=== PATIENT | female | born 1935 | race Caucasian/White ===

== ENCOUNTER 2016-09-07 | Inpatient (IN) | payer MEDICARE ==
[~2016-09-07] MED LIST: ALEVE220 MG PO; ASAB PO; ATEN50 PO; AVAP150 PO; BUM2 PO; BUSPAR10 PO; BUSPAR15 M1 PO; BUSPAR5 PO; C1 PO; C2 PO; C25 PO; C5 PO; CLARIT10 PO; CORDARONE PO; COREG25 PO; COREG3 PO; COUMADIN3 MG PO; FERROUS SULF325 M1 PO; IRON325 MG PO; KDUR20 PO; KLOR-CON 1010 MEQ PO; KLOR-CON M2020 MEQ PO; L20 PO; L40 PO; LAN25 PO; NAP500 PO; NOLV10 PO; OCEAN NAS; OS500 PO; OS500+D PO; PACERONE200 MG PO; PRAVACHOL40 MG PO; PRILO PO; REFRESH OPH; REFRESH OPH SO0.3 ML OPH; REFRESH PO; T PO; TOPXL50 PO; ULTRAM50 PO; ZOFRAN ODT4 MG PO
--- NOTE | ~2016-09-07 | CN ---
Consultation Report [facility] [address] [place]. [address] NAME: JUAQUIN RIOS : 37 STATUS : ADM IN PAT#: [id number] AGE: 81 ADM/REG DATE : 09/07/16 MR#: [id number] REPORT SERV DATE: 09/07/16 DICTATED BY: ISREAL ROBINS DATE: 09/07/16 REPORT STATUS : Draft TRANSCRIBED BY: MODL DATE: 09/07/16 CONSULTATION DATE OF CONSULTATION: REASON FOR CONSULTATION: Acute kidney injury on chronic kidney disease with volume overload and atrial fibrillation with RVR. HISTORY OF PRESENT ILLNESS: This is a very pleasant 81-year-old female patient, baseline creatinine appears to be around 1.4 to 1.9. She was recently hospitalized at [facility] for primarily the same complaint as current with increasing dyspnea and shortness of breath. She returns to [facility] overnight with increased dyspnea and shortness of breath and was noted to be in atrial fibrillation with rapid ventricular response and also volume overload with a BNP (B-natriuretic peptide) greater than 5000. She was hospitalized in favor of supportive care, rate control, and further hospital workup. The patient lives at home by herself, does receive some level of assistance and care from her children, and also receives home health care two to three days per week. She reports that over the last 48 hours to 72 hours, her dyspnea has worsened, prompting a return here to [facility]. She was discharged and placed in inpatient rehab at a long term facility earlier in the month of August and had recently returned home to living situation as listed above. Her heart rate is controlled as far as she continues on a Cardizem drip, which is at 5 mL an hour. She is awake, alert, and oriented. Denies current chest pain. No nausea, vomiting, or diarrhea. PAST MEDICAL HISTORY: Positive for chronic kidney disease, baseline creatinine around 1.4 to 1.7 with previous acute kidney injuries; recurrent hospitalizations for volume overload and shortness of breath; history of chronic atrial fibrillation with chronic warfarin use; history of systolic congestive heart failure with last known ejection fraction on 08/13/2016 noted at 20% with mild mitral regurgitation, biatrial enlargement, elevated right atrial pressure and global hypocontractility, RVSP is at 22 mmHg. History is also positive for hypertension and breast cancer, status post radiation therapy and tamoxifen therapy. SOCIAL HISTORY: No ETOH. No illicit drugs. No tobacco. FAMILY HISTORY: Noncontributory. Not reviewed during this consultation and dictation. ALLERGIES: SHE LISTS ALLERGIES TO PENICILLIN. ACTIVE MEDICATIONS: Include Cordarone 200 mg p.o. daily, artificial tears 0.3 OPH daily, Bumex 2 mg p.o. daily, BuSpar 10 mg p.o. daily, calcium 500 mg p.o. daily, Coreg 3.125 mg daily, Lovenox 80 mg subcu daily, ferrous sulfate 325 mg p.o. daily, Claritin 10 mg p.o. daily, ProAmatine 5 mg p.o. t.i.d., Prilosec 20 mg p.o. daily, Zofran 4 mg daily p.r.n. q.6 hours, oyster shell calcium 500 mg p.o. daily, Klor-Con 20 mEq daily, Pravachol 40 mg daily, Aldactone 25 mg daily, torsemide 20 mg daily, Ultram 50 mg p.o. t.i.d. p.r.n., Coumadin 2 mg Consultation Report [place] [id number] [facility] [place]. [address] NAME: JUAQUIN RIOS : 37 STATUS : ADM IN [facility]#: [id number] AGE: 81 ADM/REG DATE : 09/07/16 MR#: [id number] REPORT SERV DATE: 09/07/16 DICTATED BY: ISREAL ROBINS DATE: 09/07/16 REPORT STATUS : Draft TRANSCRIBED BY: MODL DATE: 09/07/16 daily and 3 mg half tab daily. REVIEW OF SYSTEMS: Completed, please see HPI for pertinent details. PHYSICAL EXAMINATION: VITAL SIGNS: Blood pressure 108/61, temperature 97.4, respiratory rate at 20, 97% on 2 L, heart rate is 89 beats per minute and irregular. GENERAL: She is awake, alert and oriented x3, in no acute distress during evaluation. HEENT: Normocephalic and atraumatic. Normal ocular movements. No scleral icterus or conjunctival pallor is appreciated. NECK: Supple without thyromegaly. No JVD. No mass. CHEST: Shows positive S1 and S2. No rubs or gallops. LUNGS: Diminished with scattered rhonchi and wheezes. GI: Shows positive bowel sounds in all four quadrants. No appreciable mass or tenderness. : Deferred. EXTREMITIES: Show positive pulses in all four extremities. She does have noticeable 1 to 2+ edema bilaterally, primarily in her feet. NEUROLOGIC: She appears to be grossly intact and nonfocal. SKIN: Warm, dry, and intact to visualized surfaces. No rash, lesions, or ecchymoses. DATA: Pertinent laboratories and imaging to this evaluation: 1. Laboratories: WBC 5.5, RBC 4.50, hemoglobin 13.0, hematocrit 39.4, platelets of 144. Most recent electrolyte profile: Sodium 133, potassium 3.7, chloride 94, BUN 48, creatinine 2.33, reflected GFR at 19 mL/minute, glucose of 105, calcium 9.3, magnesium 2.1, phosphorus 3.3. TSH 1.78. 2. Portable chest x-ray, bilateral effusions and bibasilar atelectasis increasing compared to previous study. 3. INR most recently at 2.6. IMPRESSION AND PLAN: This is a pleasant 81-year-old female patient with acute kidney injury on chronic kidney disease, volume overload, atrial fibrillation with rapid ventricular response, increasing dyspnea on exertion and shortness of breath with recent admission as listed above, on triple diuretic therapy at home in the form of Bumex, Aldactone, and torsemide. Would restrict fluids to 1200 mL of fluid daily, restrict her to 2 g sodium, check postvoid residual. Acute kidney injury is likely secondary to acute tubular necrosis injury with active atrial fibrillation with rapid ventricular response. Her rate is controlled, and her blood pressure has stabilized. She is chronically on midodrine therapy to provide blood pressure assistance. Would, while she is inpatient, maximize her diuretic therapy and minimize her multiple diuretics if possible. Would maximize her Aldactone and remove her potassium supplement if possible as Aldactone is a potassium-sparing diuretic. Would consider Cardiology consultation, we will defer that to primary care team. Wean Cardizem drip as her rate is now controlled. Would also consider inpatient long term facility placement as this appears to be a recurrent admission, maybe exhibiting a level of inability to provide self home care. Further modification of Consultation Report [facility] [address] [place]. [address] NAME: JUAQUIN RIOS : 37 STATUS : ADM IN [facility]#: [id number] AGE: 81 ADM/REG DATE : 09/07/16 MR#: [id number] REPORT SERV DATE: 09/07/16 DICTATED BY: ISREAL ROBINS DATE: 09/07/16 REPORT STATUS : Draft TRANSCRIBED BY: JAYMIE DATE: 09/07/16 treatment plan may be made based on the clinical presentation of the patient, laboratory results, and further consultation with Renal attending. We appreciate consultation and are glad to follow with you. DICTATED BY: Samm Rogers NP JR/JAYMIE Isreal Robins M.D. / [id number] CC: MD Zay Gama M.D.
--- NOTE | ~2016-09-07 | DS ---
Discharge Summary [facility] [address] [place]. [address] NAME: JUAQUIN RIOS : 37 STATUS : ADM IN PAT#: [id number] AGE: 81 ADM/REG DATE : 09/07/16 MR#: [id number] REPORT SERV DATE: 09/18/16 DICTATED BY: Ketan EUGENE DATE: 09/18/16 REPORT STATUS : Draft TRANSCRIBED BY: MODL DATE: 09/18/16 ADMISSION DATE: 09/07/2016 DISCHARGE DATE: DIAGNOSES AT DISCHARGE: 1. Atrial fibrillation with rapid ventricular response. 2. Acute on chronic systolic heart failure. 3. Nonischemic cardiomyopathy, ejection fraction 20%. 4. Acute kidney injury, superimposed on chronic kidney disease. 5. Cardiogenic shock, resolved at discharge. 6. Hyponatremia, improved. 7. Hypokalemia, improved. ACTIVE CONSULTATIONS: Cardiology, Electrophysiology, Nephrology, Critical Care Medicine. PROCEDURES: AV node ablation and placement of a biventricular permanent pacemaker. BRIEF HOSPITAL COURSE: An 81-year-old female patient with known nonischemic cardiomyopathy with severely depressed left ventricular function, ejection fraction 20%, was admitted with rapid ventricular response of her AFib and a resultant decompensation of her chronic heart failure. The patient also was found to have acute kidney injury, superimposed on her chronic kidney disease, seen by multiple specialists including Cardiology and Nephrology. The patient ultimately did not respond to maximum medical therapy. Electrophysiology was consulted and the decision was made after discussing with the patient and family, they would pursue the placement of a biventricular pacer and do an AV node ablation. This procedure was done on September 15, 2016. Following the procedure, the patient had a marked improvement in her clinical status, improvement in her hemodynamic status, and stabilization of her renal function. Postoperatively, the patient was transitioned from the intermediate care unit to [address] [place] [address] cardiac telemetry. She continued to do quite well, but because of her advanced age and weakened state and multiple comorbidities, decision was made to seek rehabilitation at the [facility] level. The patient was deemed stable by Nephrology, Cardiology, and the Hospitalist Service to transition to [facility] on September 18, 2016, for ongoing care. DISCHARGE MEDICATIONS: Will be as follows: Artificial Tears p.r.n., amiodarone 200 daily, BuSpar 10 at bedtime and 5 in the morning, Coreg 3.125 b.i.d., Os-Luther 500 daily, Claritin 10 daily, Prilosec 20 daily, Pravachol 40 at bedtime, Demodex 20 daily, Coumadin 2 mg daily, Lortab 5 one to two q.4 hours p.r.n. We will ask the patient to have a PT and INR done Wednesday, Wednesday, Wednesday at the facility. She will continue with ongoing physical and occupational therapy to improve her functional status. She will follow up with her primary care in a few weeks and follow up with Dr. Short at the [facility] in approximately 5 weeks. Of note, greater than 30 minutes was required to review medical record, to reconcile discharge medications, complete discharge paperwork, and prescriptions. Discharge Summary [address] [address] NAME: JUAQUIN RIOS : 37 STATUS : ADM IN PAT#: [id number] AGE: 81 ADM/REG DATE : 09/07/16 MR#: [id number] REPORT SERV DATE: 09/18/16 DICTATED BY: Ketan EUGENE DATE: 09/18/16 REPORT STATUS : Draft TRANSCRIBED BY: JAYMIE DATE: 09/18/16 [facility]/JAYMIE Ketan Eugene M.D. / [id number]
--- NOTE | ~2016-09-07 | PRECARD ---
H&P [facility] [address] [place]. [address] NAME: FRANCINE TINEO : 37 STATUS : ADM IN [facility]#: [id number] AGE: 81 ADM/REG DATE : 09/07/16 MR#: [id number] REPORT SERV DATE: 09/08/16 DICTATED BY: SKYLA LANDRUM DATE: 09/08/16 REPORT STATUS : Draft TRANSCRIBED BY: JAYMIE DATE: 09/08/16 DATE OF ADMISSION: 09/07/2016 Ms. Francine Tineo is an 81-year-old woman with a known dilated cardiomyopathy, with ejection fraction about 20%, admitted with heart failure symptoms, chronic kidney disease, acute renal insufficiency with atrial fibrillation, about 120. She does have a long history of known history of chronic systolic heart failure. Her ejection fraction had been about 30% in the past. Echocardiogram on August 12 demonstrated ejection fraction of 20%. She had persistent atrial fibrillation. She had hypotension this admission. She had not been able to receive carvedilol, and is in fact on midodrine. She has mild orthopnea and PND. She has been on warfarin and amiodarone oral, 200 mg daily. She denies stroke or stroke-like symptoms. She denies history of stroke. She has had no bleeding. PAST MEDICAL HISTORY: Atrial fibrillation, hypertension, chronic kidney disease, and breast cancer. No tobacco or alcohol. FAMILY HISTORY: Noncontributory. MEDICATIONS: Amiodarone 200 mg daily; buspirone; iron; loratadine; Protonix; pravastatin; spironolactone; torsemide; warfarin; and midodrine 5 mg t.i.d. REVIEW OF SYSTEMS: A complete review of systems obtained, pertinent negative and unremarkable except as noted above and below. All systems addressed. PHYSICAL EXAMINATION: VITAL SIGNS: Systolic pressures have been about 90, pressure currently about 106/72, heart rate 120. GENERAL: She appears chronically ill, comfortable, flat. HEENT: No xanthelasma; lips without cyanosis LUNGS: Clear to auscultation. No wheezes. Good breath sounds. occasional wheezes and rhonchi. CARDIOVASCULAR: A 2/6 murmur at the apex, holosystolic. No JVD or hepatojugular reflux, no murmurs, rubs or gallops, impulse mid clavicular line without carotid or abdominal bruits; normal S1 and S2. ABDOMEN: Bowel sounds positive, normal activity, without tenderness, masses or hepatosplenomegaly. EXTREMITIES: No cyanosis. Extremities have moderate bilateral leg edema. SKIN: Normal turgor. MUSCULOSKELETAL: Normal muscle strength, without kyphosis/scoliosis. H&P [address] [address] NAME: FRANCINE TINEO : 37 STATUS : ADM IN PAT#: [id number] AGE: 81 ADM/REG DATE : 09/07/16 MR#: [id number] REPORT SERV DATE: 09/08/16 DICTATED BY: SKYLA LANDRUM DATE: 09/08/16 REPORT STATUS : Draft TRANSCRIBED BY: JAYMIE DATE: 09/08/16 NEUROLOGIC/PSYCHIATRIC: Alert and oriented times 4, no apparent anxiety or depression. LAB DATA: BUN is 48, creatinine 2.19, hematocrit 40%. INR is 2.9. ASSESSMENT: Ms. Tineo is a very nice 81-year-old lady with dilated cardiomyopathy, ejection fraction of about 20%. She had hypotension. She has been on midodrine. I am reluctant to use digoxin because of her renal insufficiency, I would not use beta marck because of hypotension requiring midodrine, or diltiazem for the same reason. Heart rate has been about 120. I will add amiodarone IV which will hopefully improve her heart rate control. She has been on warfarin with a therapeutic INR. SANCHEZ/JAYMIE Skyla Landrum M.D. / [id number] CC: MD Zay Elizondo M.D.
--- NOTE | ~2016-09-07 | CN ---
Consultation Report [facility] [address] [place]. [address] NAME: JUAQUIN TINEO : 37 STATUS : ADM IN PAT#: [id number] AGE: 81 ADM/REG DATE : 09/07/16 MR#: [id number] REPORT SERV DATE: 09/11/16 DICTATED BY: OPAL HAWKINS DATE: 09/11/16 REPORT STATUS : Draft TRANSCRIBED BY: MODL DATE: 09/11/16 CONSULTATION DATE OF CONSULTATION: 09/11/2016 HISTORY OF PRESENT ILLNESS: Ms. Tineo is an 81-year-old woman, senior living resident, who has a longstanding history of cardiomyopathy, ejection fraction has progressively declined from 40% to 20%. She has chronic atrial fibrillation with attempt at cardioversion earlier this year, but unable to convert at that point. She has chronic renal insufficiency as well with a baseline creatinine over 2.0. She was at the senior living noting increasing shortness of breath and was admitted with this as well as atrial fibrillation with rapid ventricular response. There was some evidence of congestive heart failure with pulmonary vascular congestion on her chest x-ray. She has underlying hypotension, which has made it difficult to use beta-marck or calcium channel marck for her rate control. She previously had issues with digoxin toxicity, likely secondary to her chronic renal insufficiency. We have been asked for any other treatment options that might be available. PAST MEDICAL HISTORY: Notable for: 1. Atrial fibrillation, which is chronic. 2. Nonischemic dilated cardiomyopathy, ejection fraction currently at 20%. 3. Hypertension. 4. Chronic kidney disease. 5. History of breast cancer, status post radiation and lumpectomy in the left breast. HOME MEDICATIONS: Include amiodarone, pravastatin, spironolactone, torsemide, warfarin and she had been taking midodrine due to her hypotension, but is not taking this currently. FAMILY HISTORY: Negative for premature coronary artery disease or sudden cardiac . SOCIAL HISTORY: Negative tobacco or alcohol. REVIEW OF SYSTEMS: Notable for weakness, fatigue, lightheadedness, shortness of breath, and palpitations. PHYSICAL EXAMINATION: VITAL SIGNS: Her blood pressure is 98/60; her pulse is 130, in atrial fibrillation; her respirations are 18. GENERAL: Well developed, well nourished. She is quite fatigued. HEENT: No icterus. Good dentition. NECK: Supple. No masses or thyromegaly. LUNGS: Breathing comfortably. Rales at the bases bilaterally. CARDIAC: Rapid irregular rhythm with normal S1 and S2. ABD: Soft, nondistended, nontender. No hepatosplenomegaly. EXT: No clubbing, cyanosis, or edema. Peripheral pulses 2+/= bilaterally. Consultation Report [facility] [address] [place]. [address] NAME: JUAQUIN TINEO : 37 STATUS : ADM IN PAT#: [id number] AGE: 81 ADM/REG DATE : 09/07/16 MR#: [id number] REPORT SERV DATE: 09/11/16 DICTATED BY: OPAL HAWKINS DATE: 09/11/16 REPORT STATUS : Draft TRANSCRIBED BY: JAYMIE DATE: 09/11/16 SKIN: Warm and dry. No visible lesions. MS: Chest wall without deformity. No obvious clavicular fractures. NEURO/PSYCH: Oriented x3. No anxiety or depression. DIAGNOSTIC DATA: EKG demonstrates atrial fibrillation, IVCD, rapid ventricular response. The IVCD has a left bundle-branch block pattern type to it. LABORATORY VALUES: Creatinine of peak to 2.2, currently at 2.02; sodium 132; potassium 3.8. White count of 10.0, hematocrit of 43. INR of 128. Troponin negative. BNP greater than 5000. IMPRESSION: I believe the patient has class IV congestive heart failure that is acute on chronic. The increased ventricular response is related to her acute on chronic heart failure and difficulty of breathing. Her renal insufficiency makes her congestive heart failure symptoms worse and likely, there is an element of cardiorenal syndrome. She has had a progression in her LV dysfunction over the course of the year, and I do not believe that this is related to a tachycardia-related cardiomyopathy as the rate has been reasonably controlled until recently. We could try another attempt at cardioversion and would recommend this beginning of next week. We will plan to load amiodarone in the meantime. Another option could be AV node ablation and placement of a biventricular pacemaker or biventricular defibrillator. There potentially may be some benefit to this as the patient has had an underlying IVCD of a left bundle-branch block type and if we perform AV node ablation, she certainly would have an acquired left bundle-branch block pattern. There is some potential benefit to biventricular pacing in class IV congestive heart failure. It should be noted, however, that given the progressive nature of her heart failure along with her advanced age, whether the patient and her family will want to go on with these types of treatments that may or may not be helpful at improving her mortality or quality of life. This will need to be further discussed over the weekend. PRIYANK/JAYMIE Opal Hawkins M.D. / [id number] CC: Delfino Peres M.D.
--- NOTE | ~2016-09-07 | HP ---
History And Physical [facility] [address] [place]. [address] NAME: JUAQUIN TINEO : 37 STATUS : ADM IN [facility]#: [id number] AGE: 81 ADM/REG DATE : 09/07/16 MR#: [id number] REPORT SERV DATE: 09/07/16 DICTATED BY: DYLON ELIZABETH DATE: 09/07/16 REPORT STATUS : Draft TRANSCRIBED BY: MODL DATE: 09/07/16 DATE OF ADMISSION: 09/07/2016 CHIEF COMPLAINT: Atrial fibrillation with rapid ventricular response, swelling in both her extremities, and difficulty breathing. HISTORY OF PRESENT ILLNESS: This is an 81-year-old female, a resident at [facility], with a history of atrial fibrillation, chronic systolic congestive heart failure, hypertension, and chronic kidney disease. Is brought to the emergency room today at [facility], with the above-mentioned complaint. History is obtained from the patient and reviewing data available on [employer] system. According to the patient, she had been in her usual state of health until a couple of days ago when she started having increasing swelling in both her lower extremities and subsequently, she started having difficulty breathing. She says initially it was with exertion and now it is even at rest. She gets extremely short of breath even with minimal exertion. She was also found to have atrial fibrillation with rapid ventricular response. The patient was brought to the emergency room to be evaluated. In the emergency room, initial workup revealed that she had acute on chronic kidney disease. She had atrial fibrillation with a rapid ventricular response, volume overload with an elevated BNP, and chest x-ray showing worsening bilateral pleural effusions. Hospitalist Service is asked to admit her for further evaluation and treatment. At the time of my evaluation, she denied any chest pain, palpitations, or orthopnea. She was in no acute distress. She denied any cough recently, denied any sputum production, hemoptysis, night sweats, or weight loss. She has not had any recent falls or loss of consciousness. No history of recent fevers, chills, nausea, vomiting, or diarrhea. She denied any bleeding anywhere. No other history of recent travel or exposures other than those mentioned above. PAST MEDICAL HISTORY: Significant for history of chronic atrial fibrillation, on warfarin; history of chronic systolic congestive heart failure with last known ejection fraction of 45%. She has history of hypertension; chronic kidney disease; and also breast cancer, status post surgery and radiation therapy and tamoxifen therapy. SOCIAL HISTORY: She has never smoked. Does not drink or use recreational drugs. FAMILY HISTORY: Noncontributory. MEDICATIONS: Were reviewed by me in the chart today and reordered by me. REVIEW OF SYSTEMS: As in history of present illness. All other systems were reviewed in detail and are quite unremarkable. History And Physical [address] [address] NAME: JUAQUIN TINEO : 37 STATUS : ADM IN PAT#: [id number] AGE: 81 ADM/REG DATE : 09/07/16 MR#: [id number] REPORT SERV DATE: 09/07/16 DICTATED BY: DYLON ELIZABETH DATE: 09/07/16 REPORT STATUS : Draft TRANSCRIBED BY: JAYMIE DATE: 09/07/16 PHYSICAL EXAMINATION: GENERAL: This is a pleasant 81-year-old, not in any acute distress. HEENT: Her head is atraumatic, normocephalic. She is alert, awake, oriented to time, place, and person. Pupils are equal, reacting to light and accommodating. External ocular muscles are intact. Membranes are moist and pink. Sclerae are nonicteric. NECK: Supple with no jugular venous distention, lymphadenopathy, or thyromegaly. LUNGS: Clear to auscultation with no wheezes, rubs, or crackles. HEART: Heart sounds were regular with no murmurs, rubs, or gallops. ABDOMEN: Soft and nontender. Bowel sounds are present. EXTREMITIES: Showed bilateral pitting lower extremity edema with no cyanosis or clubbing. NEUROLOGIC: Grossly intact with no focal sensory or motor deficits. Higher functions appeared intact. VITAL SIGNS: Her temperature was 97.5, pulse 140, respirations 22, blood pressure was 103/79, oxygen saturations were 96% breathing 2 L via nasal cannula. LABORATORY DATA: Reviewed on the [employer] system showed a sodium of 134, potassium 3.8, chloride 97, CO2 of 22. BUN was 49 with a creatinine of 2.42, which is up from her baseline. Glucose was 137. Her albumin was 3.1 today. ALT and AST were within normal limits. Troponin was 0.02. Her BNP was 5,000. CBC showed a white blood cell count of 4200, normal hemoglobin and hematocrit, and platelet count was 170,000. Urinalysis was not performed today. Films of the chest x-ray were reviewed by me on the PACS today and interpreted by me. There are worsening bilateral pleural effusions when compared to x-ray done on 08/15/2016. There is cardiomegaly. A 12-lead EKG done in the emergency room was reviewed and interpreted by me. There is atrial fibrillation with rapid ventricular response of 142. IMPRESSION: 1. Atrial fibrillation with rapid ventricular response. 2. Volume overload. 3. Acute on chronic systolic congestive heart failure. 4. Hypertension. 5. Acute on chronic kidney disease. PLAN: We will admit Ms. Tineo to the Hospitalist Service with telemetry for a 24-hour observation period. We will start her on Cardizem infusion per protocol for rate control cautiously due to her blood pressure. For her acute on chronic kidney disease with volume overload, we will hold diuretics for now because of her borderline blood pressure and go ahead and consult Nephrology. For now, we will use albumin infusion and then see if we can use IV diuretics if possible and also rate control. We will continue all other medications and treatments at this time. Check PT/INR in the morning and re-dose warfarin as needed. I have discussed the above plans with the patient, her questions were answered, and she is agreeable to the above recommendations. Please see today's orders for details. Hospitalist Service will be following her during her stay. History And Physical [address] [address] NAME: JUAQUIN TINEO : 37 STATUS : ADM IN [facility]#: [id number] AGE: 81 ADM/REG DATE : 09/07/16 MR#: [id number] REPORT SERV DATE: 09/07/16 DICTATED BY: DYLON ELIZABETH DATE: 09/07/16 REPORT STATUS : Draft TRANSCRIBED BY: JAYMIE DATE: 09/07/16 /JAYMIE Dylon Elizabeth M.D. / [id number] CC: MD Zay Gama M.D.
[2016-09-07 00:38] LABS: BASOPHILS 0.2 %; BASOPHILS ABSOLUTE 0.01 10/3/uL (0.0-0.16); EOSINOPHILS 0.7 %; EOSINOPHILS ABSOLUTE 0.03 10/3/uL (0.0-0.53); ER CBC TAT 0 Hrs 09 Mins; HEMOGLOBIN 15.2 g/dL (12.0-16.0); IMMATURE GRANULOCYTES 0.2 %; IMMATURE GRANULOCYTES ABSOLUTE 0.01 10/3/uL (0.0-0.11); LYMPHOCYTES 28.5 %; LYMPHOCYTES ABSOLUTE 1.19 10/3/uL (0.67-4.30); MANUAL DIFF NO %; MEAN CORPUS HGB CONC 33.8 g/dL (32.0-36.0); MEAN CORPUSCULAR HEMOGLOB 29.4 pg (26.0-34.0); MEAN PLATELET VOLUME 13.3 fL (9.2-13.0); MONOCYTES 6.7 %; MONOCYTES ABSOLUTE 0.28 10/3/uL (0.21-1.20); NEUTROPHILS 63.7 %; NEUTROPHILS ABSOLUTE 2.65 10/3/uL (2.02-8.40); NUCLEATED RED BLOOD CELLS 0.7 /100WBC (0-0); PLATELET COUNT 170 10/3/uL (150-400); RBC DISTRIBUTION WIDTH 17.3 % (12.0-16.0); RED CELL COUNT 5.17 10/6/uL (4.0-5.6); WHITE BLOOD CELLS 4.2 10/3/uL (4.5-10.5)
[2016-09-07 00:47] LABS: INTERNATIONAL NORMAL RATI 2.6 UNITS (-); PARTIAL THROMBO TIME 40.5 SEC (22.5-37.2); PROTIME (NOT ORD) 27.4 SEC (12.0-14.5)
[2016-09-07 00:51] LABS: CALCIUM, SERUM 9.2 MG/DL (8.5-10.4); CHEST PAIN PROFILE TAT 0 Hrs 22 Mins; CHLORIDE, SERUM 97 MMOL/L (96-112); DIRECT BILIRUBIN 0.8 MG/DL (0.0-0.4); POTASSIUM, SERUM 3.8 MMOL/L (3.5-5.3); SGOT(AST) 23 U/L (5-40); SGPT(ALT) 29 U/L (5-65); SODIUM, SERUM 134 MMOL/L (135-148); TOTAL PROTEIN 6.7 G/DL (6.0-8.5); TROPONIN I 0.02 NG/ML (<0.05)
[2016-09-07 00:54] LABS: ALBUMIN 3.1 G/DL (3.5-5.0); ALKALINE PHOSPHATASE 63 U/L (45-117); BUN (BLOOD UREA NITROGEN) 49 MG/DL (6-23); CO2 (CARBON DIOXIDE) 22 MMOL/L (24-34); CREATININE 2.42 MG/DL (0.55-1.02); GFR AFRICAN AMERICAN 21 ML/MIN (>=60); GFR NON AFRICAN AMERICAN 18 ML/MIN (>=60); GLUCOSE, SERUM 137 MG/DL (60-99); INDIRECT BILIRUBIN(NOT ORDER) 0.6 MG/DL (0.1-0.9); TOTAL BILIRUBIN 1.4 MG/DL (0-1.2)
[2016-09-07 01:00] LABS: PLATELET ESTIMATE ADQ (ADEQUATE); RBC MORPHOLOGY NORM (NORMAL)
[2016-09-07] MEDS ORDERED: SPIRO25 PO (01:23)
[2016-09-07] MEDS ORDERED: DEMA20 PO (01:23)
[2016-09-07] MEDS ORDERED: LOVENOX80 SC ×2 (01:25→15:11)
[2016-09-07] MEDS ORDERED: PROAMAT5 PO (01:26)
[2016-09-07] MEDS ORDERED: OYST-CAL500 MG PO (01:26)
[2016-09-07] MEDS ORDERED: COUMADIN3 MG PO (01:28)
[2016-09-07 08:59] LABS: BASOPHILS 0 %; EOSINOPHILS 0 %; HEMATOCRIT 39.4 % (36.0-48.0); IMMATURE GRANULOCYTES 0.4 %; IMMATURE GRANULOCYTES ABSOLUTE 0.02 10/3/uL (0.0-0.11); MEAN CORPUSCULAR HEMOGLOB 28.9 pg (26.0-34.0); MEAN CORPUSCULAR VOLUME 87.6 fL (80-100); MONOCYTES 6.2 %; MONOCYTES ABSOLUTE 0.34 10/3/uL (0.21-1.20); NEUTROPHILS 82.4 %; PLATELET COUNT 144 10/3/uL (150-400); RBC DISTRIBUTION WIDTH 17.2 % (12.0-16.0); WHITE BLOOD CELLS 5.5 10/3/uL (4.5-10.5)
[2016-09-07 09:00] LABS: MANUAL DIFF NO %
[2016-09-07 09:04] LABS: INTERNATIONAL NORMAL RATI 2.6 UNITS (-); PROTIME (NOT ORD) 27.8 SEC (12.0-14.5)
[2016-09-07 09:40] LABS: BUN (BLOOD UREA NITROGEN) 48 MG/DL (6-23); CALCIUM, SERUM 9.3 MG/DL (8.5-10.4); CHLORIDE, SERUM 94 MMOL/L (96-112); CREATININE 2.33 MG/DL (0.55-1.02); GFR AFRICAN AMERICAN 22 ML/MIN (>=60); GFR NON AFRICAN AMERICAN 19 ML/MIN (>=60); PHOSPHORUS, SERUM 3.3 MG/DL (2.5-4.5); POTASSIUM, SERUM 3.7 MMOL/L (3.5-5.3); SODIUM, SERUM 133 MMOL/L (135-148)
[2016-09-07 09:41] LABS: CO2 (CARBON DIOXIDE) 28 MMOL/L (24-34); GLUCOSE, SERUM 105 MG/DL (60-99)
[2016-09-07 10:01] LABS: ANISOCYTOSIS 1+ (5-10/OIF) (0-5/OIF); GIANT PLATELET RARE; PLATELET ESTIMATE SLT DEC (ADEQUATE)
[2016-09-08 05:28] LABS: BASOPHILS 0 %; EOSINOPHILS 0.7 %; EOSINOPHILS ABSOLUTE 0.04 10/3/uL (0.0-0.53); HEMATOCRIT 40.4 % (36.0-48.0); HEMOGLOBIN 13.6 g/dL (12.0-16.0); IMMATURE GRANULOCYTES 0.2 %; IMMATURE GRANULOCYTES ABSOLUTE 0.01 10/3/uL (0.0-0.11); INTERNATIONAL NORMAL RATI 2.9 UNITS (-); LYMPHOCYTES 18.6 %; LYMPHOCYTES ABSOLUTE 1.06 10/3/uL (0.67-4.30); MEAN CORPUS HGB CONC 33.7 g/dL (32.0-36.0); MEAN CORPUSCULAR HEMOGLOB 29.1 pg (26.0-34.0); MEAN CORPUSCULAR VOLUME 86.5 fL (80-100); MEAN PLATELET VOLUME 13.2 fL (9.2-13.0); MONOCYTES 7.4 %; MONOCYTES ABSOLUTE 0.42 10/3/uL (0.21-1.20); NEUTROPHILS 73.1 %; NEUTROPHILS ABSOLUTE 4.17 10/3/uL (2.02-8.40); PLATELET COUNT 150 10/3/uL (150-400); PROTIME (NOT ORD) 29.7 SEC (12.0-14.5); RBC DISTRIBUTION WIDTH 17.3 % (12.0-16.0); RED CELL COUNT 4.67 10/6/uL (4.0-5.6); WHITE BLOOD CELLS 5.7 10/3/uL (4.5-10.5)
[2016-09-08 05:30] LABS: MANUAL DIFF NO %
[2016-09-08 05:38] LABS: ALBUMIN 3.4 G/DL (3.5-5.0); BUN (BLOOD UREA NITROGEN) 48 MG/DL (6-23); CHLORIDE, SERUM 95 MMOL/L (96-112); CO2 (CARBON DIOXIDE) 28 MMOL/L (24-34); CREATININE 2.19 MG/DL (0.55-1.02); GFR AFRICAN AMERICAN 24 ML/MIN (>=60); GFR NON AFRICAN AMERICAN 21 ML/MIN (>=60); GLUCOSE, SERUM 94 MG/DL (60-99); PHOSPHORUS, SERUM 2.9 MG/DL (2.5-4.5); POTASSIUM, SERUM 3.6 MMOL/L (3.5-5.3); SODIUM, SERUM 136 MMOL/L (135-148)
[2016-09-08 05:45] LABS: ANISOCYTOSIS 1+ (5-10/OIF) (0-5/OIF); PLATELET ESTIMATE ADQ (ADEQUATE)
[2016-09-08 14:15] LABS: UR PROTEIN/CREAT RATIO 0.25 (< 0.2)
[2016-09-09 06:37] LABS: PROTIME (NOT ORD) 30.6 SEC (12.0-14.5)
[2016-09-09 06:44] LABS: BASOPHILS 0.2 %; BASOPHILS ABSOLUTE 0.01 10/3/uL (0.0-0.16); EOSINOPHILS 0.8 %; EOSINOPHILS ABSOLUTE 0.05 10/3/uL (0.0-0.53); HEMOGLOBIN 14.7 g/dL (12.0-16.0); IMMATURE GRANULOCYTES 0.5 %; IMMATURE GRANULOCYTES ABSOLUTE 0.03 10/3/uL (0.0-0.11); LYMPHOCYTES 19.2 %; LYMPHOCYTES ABSOLUTE 1.16 10/3/uL (0.67-4.30); MANUAL DIFF NO %; MEAN CORPUS HGB CONC 33.4 g/dL (32.0-36.0); MEAN CORPUSCULAR HEMOGLOB 29.1 pg (26.0-34.0); MEAN PLATELET VOLUME 13.6 fL (9.2-13.0); MONOCYTES 7.6 %; MONOCYTES ABSOLUTE 0.46 10/3/uL (0.21-1.20); NEUTROPHILS 71.7 %; NEUTROPHILS ABSOLUTE 4.34 10/3/uL (2.02-8.40); PLATELET COUNT 148 10/3/uL (150-400); RBC DISTRIBUTION WIDTH 17.4 % (12.0-16.0); RED CELL COUNT 5.06 10/6/uL (4.0-5.6); WHITE BLOOD CELLS 6.1 10/3/uL (4.5-10.5)
[2016-09-09 06:49] LABS: A/G RATIO 1.2 (0.7-1.9); ALBUMIN 3.6 G/DL (3.5-5.0); ALKALINE PHOSPHATASE 56 U/L (45-117); BUN (BLOOD UREA NITROGEN) 48 MG/DL (6-23); CALCIUM, SERUM 9.5 MG/DL (8.5-10.4); CHLORIDE, SERUM 92 MMOL/L (96-112); CO2 (CARBON DIOXIDE) 28 MMOL/L (24-34); CREATININE 2.24 MG/DL (0.55-1.02); GFR AFRICAN AMERICAN 23 ML/MIN (>=60); GFR NON AFRICAN AMERICAN 20 ML/MIN (>=60); GLOBULIN 3.1 G/DL (2.5-4.1); GLUCOSE, SERUM 110 MG/DL (60-99); SGOT(AST) 28 U/L (5-40); SGPT(ALT) 23 U/L (5-65); SODIUM, SERUM 133 MMOL/L (135-148); TOTAL PROTEIN 6.7 G/DL (6.0-8.5)
[2016-09-09 06:54] LABS: POTASSIUM, SERUM 4.5 MMOL/L (3.5-5.3); TOTAL BILIRUBIN 2.2 MG/DL (0-1.2)
[2016-09-09 07:09] LABS: ANISOCYTOSIS 1+ (5-10/OIF) (0-5/OIF); PLATELET ESTIMATE DEC (ADEQUATE)
[2016-09-09 07:10] LABS: HYPOCHROMIA 1+ (3-10/OIF) (0-2/OIF); MACROCYTES 1+ (5-10/OIF) (0-5/OIF)
[2016-09-09 13:30] LABS: ALLENS TEST Pos; BE (BASE EXCESS) 1.8 MEQ/L (0 +/- 2.5); CARBOXYHEMOGLOBIN 0.8 % (0-3); DEVICE NC; HCO3 (ACTUAL BICARBONATE) 24.1 MEQ/L (23-27); HEMOBLOGIN CONTENT 15.1 G/DL (12-16); INSTRUMENT SERIAL # 11843; METHEMOGLOBIN 0.4 % (0-3); O2 CONTENT 20.3 VOL% (18-24); OPERATOR ID 32214; PCO2 (CO2 TENSION) 32 MMHG (35-45); PO2 (O2 TENSION) 86 MMHG (79-93); SAMPLE Arterial
[2016-09-10 00:37] LABS: BUN (BLOOD UREA NITROGEN) 47 MG/DL (6-23); CHLORIDE, SERUM 91 MMOL/L (96-112); CO2 (CARBON DIOXIDE) 29 MMOL/L (24-34); CPK (IF ELEVATED MB BANDS) 14 U/L (0-200); CREATININE 2.22 MG/DL (0.55-1.02); GFR AFRICAN AMERICAN 23 ML/MIN (>=60); GFR NON AFRICAN AMERICAN 20 ML/MIN (>=60); POTASSIUM, SERUM 3.7 MMOL/L (3.5-5.3); SODIUM, SERUM 133 MMOL/L (135-148); TROPONIN I 0.02 NG/ML (<0.05)
[2016-09-10 00:40] LABS: GLUCOSE, SERUM 148 MG/DL (60-99)
[2016-09-10 04:32] LABS: INTERNATIONAL NORMAL RATI 2.5 UNITS (-); PROTIME (NOT ORD) 27.1 SEC (12.0-14.5)
[2016-09-10 04:58] LABS: ALBUMIN 3.3 G/DL (3.5-5.0); CALCIUM, SERUM 9.2 MG/DL (8.5-10.4); CHLORIDE, SERUM 96 MMOL/L (96-112); CREATININE 2.24 MG/DL (0.55-1.02); GFR AFRICAN AMERICAN 23 ML/MIN (>=60); GFR NON AFRICAN AMERICAN 20 ML/MIN (>=60); GLUCOSE, SERUM 172 MG/DL (60-99); PHOSPHORUS, SERUM 2.5 MG/DL (2.5-4.5); POTASSIUM, SERUM 3.7 MMOL/L (3.5-5.3); SODIUM, SERUM 130 MMOL/L (135-148)
[2016-09-10 04:59] LABS: BASOPHILS 0.1 %; BASOPHILS ABSOLUTE 0.01 10/3/uL (0.0-0.16); EOSINOPHILS 0 %; HEMATOCRIT 42.3 % (36.0-48.0); IMMATURE GRANULOCYTES 0.2 %; IMMATURE GRANULOCYTES ABSOLUTE 0.02 10/3/uL (0.0-0.11); LYMPHOCYTES 3.6 %; LYMPHOCYTES ABSOLUTE 0.36 10/3/uL (0.67-4.30); MEAN CORPUS HGB CONC 33.1 g/dL (32.0-36.0); MEAN CORPUSCULAR VOLUME 84.6 fL (80-100); MONOCYTES 7.5 %; MONOCYTES ABSOLUTE 0.75 10/3/uL (0.21-1.20); NEUTROPHILS 88.6 %; NEUTROPHILS ABSOLUTE 8.83 10/3/uL (2.02-8.40); PLATELET COUNT 128 10/3/uL (150-400); RBC DISTRIBUTION WIDTH 17.5 % (12.0-16.0)
[2016-09-10 05:01] LABS: BUN (BLOOD UREA NITROGEN) 51 MG/DL (6-23); CO2 (CARBON DIOXIDE) 21 MMOL/L (24-34)
[2016-09-10 05:05] LABS: MANUAL DIFF NO %
[2016-09-10 06:27] LABS: ANISOCYTOSIS 1+ (5-10/OIF) (0-5/OIF); MACROCYTES 1+ (5-10/OIF) (0-5/OIF); PLATELET ESTIMATE SLT DEC (ADEQUATE); POLYCHROMASIA 1+ (2-5/OIF) (0-1/OIF)
[2016-09-10 06:28] LABS: TEARDROP SHAPED RBCS OCC (0-2/OIF)
[2016-09-10 17:07] LABS: CREATININE, URINE 57.2 MG/DL
[2016-09-11 04:28] LABS: INTERNATIONAL NORMAL RATI 2.3 UNITS (-); PROTIME (NOT ORD) 25.1 SEC (12.0-14.5)
[2016-09-11 04:34] LABS: BASOPHILS 0 %; EOSINOPHILS 0.2 %; EOSINOPHILS ABSOLUTE 0.02 10/3/uL (0.0-0.53); HEMATOCRIT 43.1 % (36.0-48.0); HEMOGLOBIN 14.5 g/dL (12.0-16.0); IMMATURE GRANULOCYTES 0.2 %; IMMATURE GRANULOCYTES ABSOLUTE 0.02 10/3/uL (0.0-0.11); LYMPHOCYTES 8.5 %; LYMPHOCYTES ABSOLUTE 0.85 10/3/uL (0.67-4.30); MEAN CORPUS HGB CONC 33.6 g/dL (32.0-36.0); MEAN CORPUSCULAR HEMOGLOB 28.8 pg (26.0-34.0); MEAN CORPUSCULAR VOLUME 85.7 fL (80-100); MONOCYTES 9.8 %; MONOCYTES ABSOLUTE 0.98 10/3/uL (0.21-1.20); NEUTROPHILS 81.3 %; NEUTROPHILS ABSOLUTE 8.08 10/3/uL (2.02-8.40); PLATELET COUNT 128 10/3/uL (150-400); RBC DISTRIBUTION WIDTH 17.5 % (12.0-16.0); RED CELL COUNT 5.03 10/6/uL (4.0-5.6)
[2016-09-11 04:35] LABS: MANUAL DIFF NO %
[2016-09-11 04:40] LABS: A/G RATIO 1.1 (0.7-1.9); ALBUMIN 3.3 G/DL (3.5-5.0); ALKALINE PHOSPHATASE 56 U/L (45-117); BUN (BLOOD UREA NITROGEN) 52 MG/DL (6-23); CALCIUM, SERUM 9.5 MG/DL (8.5-10.4); CHLORIDE, SERUM 93 MMOL/L (96-112); CREATININE 2.02 MG/DL (0.55-1.02); GFR AFRICAN AMERICAN 26 ML/MIN (>=60); GFR NON AFRICAN AMERICAN 23 ML/MIN (>=60); GLOBULIN 3.1 G/DL (2.5-4.1); PHOSPHORUS, SERUM 2.6 MG/DL (2.5-4.5); POTASSIUM, SERUM 3.8 MMOL/L (3.5-5.3); SGOT(AST) 39 U/L (5-40); SGPT(ALT) 39 U/L (5-65); SODIUM, SERUM 132 MMOL/L (135-148); TOTAL BILIRUBIN 2.4 MG/DL (0-1.2); TOTAL PROTEIN 6.4 G/DL (6.0-8.5)
[2016-09-11 04:43] LABS: CO2 (CARBON DIOXIDE) 27 MMOL/L (24-34); GLUCOSE, SERUM 112 MG/DL (60-99)
[2016-09-11 05:51] LABS: ANISOCYTOSIS 1+ (5-10/OIF) (0-5/OIF); PLATELET ESTIMATE ADQ (ADEQUATE); POLYCHROMASIA 1+ (2-5/OIF) (0-1/OIF); TEARDROP SHAPED RBCS OCC (0-2/OIF)
[2016-09-11 06:18] LABS: ALLENS TEST Pos; BE (BASE EXCESS) 0.8 MEQ/L (0 +/- 2.5); CARBOXYHEMOGLOBIN 1.9 % (0-3); DEVICE NC; HCO3 (ACTUAL BICARBONATE) 23.5 MEQ/L (23-27); INSTRUMENT SERIAL # 8083; O2 CONTENT 19.9 VOL% (18-24); OPERATOR ID 31061; PCO2 (CO2 TENSION) 32 MMHG (35-45); PO2 (O2 TENSION) 78 MMHG (79-93); SAMPLE Arterial; pH 7.48 (7.37-7.43)
[2016-09-12 05:17] LABS: BASOPHILS 0 %; EOSINOPHILS 0.2 %; EOSINOPHILS ABSOLUTE 0.02 10/3/uL (0.0-0.53); HEMATOCRIT 44.2 % (36.0-48.0); HEMOGLOBIN 14.9 g/dL (12.0-16.0); IMMATURE GRANULOCYTES 0.4 %; IMMATURE GRANULOCYTES ABSOLUTE 0.04 10/3/uL (0.0-0.11); LYMPHOCYTES 14.5 %; LYMPHOCYTES ABSOLUTE 1.34 10/3/uL (0.67-4.30); MEAN CORPUS HGB CONC 33.7 g/dL (32.0-36.0); MEAN CORPUSCULAR HEMOGLOB 28.7 pg (26.0-34.0); MONOCYTES 8.9 %; MONOCYTES ABSOLUTE 0.82 10/3/uL (0.21-1.20); NEUTROPHILS ABSOLUTE 7.01 10/3/uL (2.02-8.40); PLATELET COUNT 145 10/3/uL (150-400); RBC DISTRIBUTION WIDTH 17.5 % (12.0-16.0); WHITE BLOOD CELLS 9.2 10/3/uL (4.5-10.5)
[2016-09-12 05:18] LABS: MANUAL DIFF NO %
[2016-09-12 05:30] LABS: CALCIUM, SERUM 9.6 MG/DL (8.5-10.4); CHLORIDE, SERUM 87 MMOL/L (96-112); CO2 (CARBON DIOXIDE) 24 MMOL/L (24-34); GFR AFRICAN AMERICAN 20 ML/MIN (>=60); GFR NON AFRICAN AMERICAN 18 ML/MIN (>=60); GLUCOSE, SERUM 97 MG/DL (60-99); INTERNATIONAL NORMAL RATI 3.3 UNITS (-); POTASSIUM, SERUM 4.3 MMOL/L (3.5-5.3); SODIUM, SERUM 129 MMOL/L (135-148)
[2016-09-12 05:31] LABS: BUN (BLOOD UREA NITROGEN) 59 MG/DL (6-23); PHOSPHORUS, SERUM 4.1 MG/DL (2.5-4.5)
[2016-09-12 05:35] LABS: PROTIME (NOT ORD) 33.5 SEC (12.0-14.5)
[2016-09-12 06:21] LABS: PLATELET ESTIMATE SLT DEC (ADEQUATE)
[2016-09-13 04:36] LABS: BASOPHILS 0.1 %; BASOPHILS ABSOLUTE 0.01 10/3/uL (0.0-0.16); EOSINOPHILS 0.1 %; EOSINOPHILS ABSOLUTE 0.01 10/3/uL (0.0-0.53); HEMATOCRIT 39.3 % (36.0-48.0); HEMOGLOBIN 13.8 g/dL (12.0-16.0); IMMATURE GRANULOCYTES 0.3 %; IMMATURE GRANULOCYTES ABSOLUTE 0.04 10/3/uL (0.0-0.11); LYMPHOCYTES 5.9 %; LYMPHOCYTES ABSOLUTE 0.76 10/3/uL (0.67-4.30); MANUAL DIFF NO %; MEAN CORPUS HGB CONC 35.1 g/dL (32.0-36.0); MEAN CORPUSCULAR HEMOGLOB 29.6 pg (26.0-34.0); MEAN CORPUSCULAR VOLUME 84.2 fL (80-100); MONOCYTES 5.9 %; MONOCYTES ABSOLUTE 0.76 10/3/uL (0.21-1.20); NEUTROPHILS 87.7 %; NEUTROPHILS ABSOLUTE 11.41 10/3/uL (2.02-8.40); PLATELET COUNT 138 10/3/uL (150-400); RED CELL COUNT 4.67 10/6/uL (4.0-5.6)
[2016-09-13 04:43] LABS: PROTIME (NOT ORD) 38.3 SEC (12.0-14.5)
[2016-09-13 04:49] LABS: CALCIUM, SERUM 8.8 MG/DL (8.5-10.4); CHLORIDE, SERUM 87 MMOL/L (96-112); CO2 (CARBON DIOXIDE) 28 MMOL/L (24-34); CREATININE 2.83 MG/DL (0.55-1.02); GFR AFRICAN AMERICAN 18 ML/MIN (>=60); GFR NON AFRICAN AMERICAN 15 ML/MIN (>=60); GLUCOSE, SERUM 91 MG/DL (60-99); POTASSIUM, SERUM 4.1 MMOL/L (3.5-5.3); SODIUM, SERUM 129 MMOL/L (135-148)
[2016-09-13 04:52] LABS: BUN (BLOOD UREA NITROGEN) 73 MG/DL (6-23)
[2016-09-14 05:43] LABS: BASOPHILS 0 %; EOSINOPHILS 0.2 %; EOSINOPHILS ABSOLUTE 0.02 10/3/uL (0.0-0.53); HEMATOCRIT 40.6 % (36.0-48.0); HEMOGLOBIN 14.1 g/dL (12.0-16.0); IMMATURE GRANULOCYTES 0.2 %; IMMATURE GRANULOCYTES ABSOLUTE 0.02 10/3/uL (0.0-0.11); LYMPHOCYTES 4.1 %; LYMPHOCYTES ABSOLUTE 0.48 10/3/uL (0.67-4.30); MEAN CORPUS HGB CONC 34.7 g/dL (32.0-36.0); MEAN CORPUSCULAR HEMOGLOB 28.1 pg (26.0-34.0); MEAN PLATELET VOLUME 12.7 fL (9.2-13.0); MONOCYTES ABSOLUTE 0.82 10/3/uL (0.21-1.20); NEUTROPHILS 88.5 %; NEUTROPHILS ABSOLUTE 10.36 10/3/uL (2.02-8.40); PLATELET COUNT 154 10/3/uL (150-400); RBC DISTRIBUTION WIDTH 17.1 % (12.0-16.0); RED CELL COUNT 5.01 10/6/uL (4.0-5.6); WHITE BLOOD CELLS 11.7 10/3/uL (4.5-10.5)
[2016-09-14 05:45] LABS: MANUAL DIFF NO %
[2016-09-14 05:56] LABS: CALCIUM, SERUM 8.9 MG/DL (8.5-10.4); CHLORIDE, SERUM 84 MMOL/L (96-112); CO2 (CARBON DIOXIDE) 30 MMOL/L (24-34); CREATININE 2.74 MG/DL (0.55-1.02); GFR AFRICAN AMERICAN 18 ML/MIN (>=60); GFR NON AFRICAN AMERICAN 16 ML/MIN (>=60); GLUCOSE, SERUM 82 MG/DL (60-99); POTASSIUM, SERUM 3.3 MMOL/L (3.5-5.3); SODIUM, SERUM 129 MMOL/L (135-148)
[2016-09-14 05:58] LABS: BUN (BLOOD UREA NITROGEN) 78 MG/DL (6-23)
[2016-09-14 06:03] LABS: INTERNATIONAL NORMAL RATI 2.6 UNITS (-)
[2016-09-14 06:04] LABS: PROTIME (NOT ORD) 27.9 SEC (12.0-14.5)
[2016-09-14 06:35] LABS: ANISOCYTOSIS 1+ (5-10/OIF) (0-5/OIF); PLATELET ESTIMATE ADQ (ADEQUATE)
[2016-09-15 06:32] LABS: BASOPHILS 0 %; EOSINOPHILS 0.4 %; EOSINOPHILS ABSOLUTE 0.05 10/3/uL (0.0-0.53); HEMATOCRIT 40.1 % (36.0-48.0); HEMOGLOBIN 14.1 g/dL (12.0-16.0); IMMATURE GRANULOCYTES 0.3 %; IMMATURE GRANULOCYTES ABSOLUTE 0.04 10/3/uL (0.0-0.11); LYMPHOCYTES 7.1 %; LYMPHOCYTES ABSOLUTE 0.81 10/3/uL (0.67-4.30); MEAN CORPUS HGB CONC 35.2 g/dL (32.0-36.0); MEAN CORPUSCULAR VOLUME 82.3 fL (80-100); MONOCYTES 8.8 %; MONOCYTES ABSOLUTE 1.01 10/3/uL (0.21-1.20); NEUTROPHILS 83.4 %; NEUTROPHILS ABSOLUTE 9.55 10/3/uL (2.02-8.40); PLATELET COUNT 142 10/3/uL (150-400); RBC DISTRIBUTION WIDTH 17.2 % (12.0-16.0); RED CELL COUNT 4.87 10/6/uL (4.0-5.6); WHITE BLOOD CELLS 11.5 10/3/uL (4.5-10.5)
[2016-09-15 06:33] LABS: MANUAL DIFF NO %
[2016-09-15 06:35] LABS: INTERNATIONAL NORMAL RATI 1.7 UNITS (-)
[2016-09-15 06:36] LABS: PROTIME (NOT ORD) 19.7 SEC (12.0-14.5)
[2016-09-15 06:46] LABS: BUN (BLOOD UREA NITROGEN) 70 MG/DL (6-23); CALCIUM, SERUM 8.8 MG/DL (8.5-10.4); CHLORIDE, SERUM 88 MMOL/L (96-112); CO2 (CARBON DIOXIDE) 28 MMOL/L (24-34); CREATININE 2.39 MG/DL (0.55-1.02); GFR AFRICAN AMERICAN 21 ML/MIN (>=60); GFR NON AFRICAN AMERICAN 19 ML/MIN (>=60); GLUCOSE, SERUM 89 MG/DL (60-99); PHOSPHORUS, SERUM 3.1 MG/DL (2.5-4.5); POTASSIUM, SERUM 3.5 MMOL/L (3.5-5.3); SODIUM, SERUM 129 MMOL/L (135-148)
[2016-09-16 05:13] LABS: INTERNATIONAL NORMAL RATI 1.5 UNITS (-); PROTIME (NOT ORD) 17.7 SEC (12.0-14.5)
[2016-09-16 05:14] LABS: BASOPHILS 0 %; EOSINOPHILS 0.5 %; EOSINOPHILS ABSOLUTE 0.04 10/3/uL (0.0-0.53); HEMATOCRIT 37.8 % (36.0-48.0); IMMATURE GRANULOCYTES 0.2 %; IMMATURE GRANULOCYTES ABSOLUTE 0.02 10/3/uL (0.0-0.11); LYMPHOCYTES 5.9 %; LYMPHOCYTES ABSOLUTE 0.48 10/3/uL (0.67-4.30); MANUAL DIFF NO %; MEAN CORPUS HGB CONC 34.4 g/dL (32.0-36.0); MEAN CORPUSCULAR HEMOGLOB 29.1 pg (26.0-34.0); MEAN CORPUSCULAR VOLUME 84.6 fL (80-100); MONOCYTES 8.9 %; MONOCYTES ABSOLUTE 0.72 10/3/uL (0.21-1.20); NEUTROPHILS 84.5 %; NEUTROPHILS ABSOLUTE 6.87 10/3/uL (2.02-8.40); PLATELET COUNT 108 10/3/uL (150-400); RBC DISTRIBUTION WIDTH 17.5 % (12.0-16.0); RED CELL COUNT 4.47 10/6/uL (4.0-5.6); WHITE BLOOD CELLS 8.1 10/3/uL (4.5-10.5)
[2016-09-16 05:40] LABS: A/G RATIO 0.9 (0.7-1.9); ALBUMIN 2.4 G/DL (3.5-5.0); CHLORIDE, SERUM 91 MMOL/L (96-112); CO2 (CARBON DIOXIDE) 30 MMOL/L (24-34); CREATININE 2.02 MG/DL (0.55-1.02); GFR AFRICAN AMERICAN 26 ML/MIN (>=60); GFR NON AFRICAN AMERICAN 23 ML/MIN (>=60); GLOBULIN 2.8 G/DL (2.5-4.1); PHOSPHORUS, SERUM 3.3 MG/DL (2.5-4.5); POTASSIUM, SERUM 3.1 MMOL/L (3.5-5.3); SGOT(AST) 110 U/L (5-40); SGPT(ALT) 203 U/L (5-65); SODIUM, SERUM 133 MMOL/L (135-148); TOTAL PROTEIN 5.2 G/DL (6.0-8.5)
[2016-09-16 05:50] LABS: ALKALINE PHOSPHATASE 75 U/L (45-117); BUN (BLOOD UREA NITROGEN) 61 MG/DL (6-23); GLUCOSE, SERUM 70 MG/DL (60-99); TOTAL BILIRUBIN 3.7 MG/DL (0-1.2)
[2016-09-16 16:15] LABS: POTASSIUM, SERUM 3.2 MMOL/L (3.5-5.3)
[2016-09-17 06:47] LABS: BASOPHILS 0.1 %; BASOPHILS ABSOLUTE 0.01 10/3/uL (0.0-0.16); EOSINOPHILS 0.6 %; EOSINOPHILS ABSOLUTE 0.05 10/3/uL (0.0-0.53); HEMATOCRIT 41.3 % (36.0-48.0); HEMOGLOBIN 13.8 g/dL (12.0-16.0); IMMATURE GRANULOCYTES 0.3 %; IMMATURE GRANULOCYTES ABSOLUTE 0.02 10/3/uL (0.0-0.11); LYMPHOCYTES 7.3 %; LYMPHOCYTES ABSOLUTE 0.57 10/3/uL (0.67-4.30); MANUAL DIFF NO %; MEAN CORPUS HGB CONC 33.4 g/dL (32.0-36.0); MEAN CORPUSCULAR HEMOGLOB 28.9 pg (26.0-34.0); MEAN CORPUSCULAR VOLUME 86.6 fL (80-100); MEAN PLATELET VOLUME 11.2 fL (9.2-13.0); MONOCYTES 9.3 %; MONOCYTES ABSOLUTE 0.72 10/3/uL (0.21-1.20); NEUTROPHILS 82.4 %; NEUTROPHILS ABSOLUTE 6.39 10/3/uL (2.02-8.40); PLATELET COUNT 86 10/3/uL (150-400); RBC DISTRIBUTION WIDTH 17.7 % (12.0-16.0); RED CELL COUNT 4.77 10/6/uL (4.0-5.6); WHITE BLOOD CELLS 7.8 10/3/uL (4.5-10.5)
[2016-09-17 06:51] LABS: INTERNATIONAL NORMAL RATI 1.4 UNITS (-); PROTIME (NOT ORD) 17.2 SEC (12.0-14.5)
[2016-09-17 06:59] LABS: ALBUMIN 2.5 G/DL (3.5-5.0); CALCIUM, SERUM 8.8 MG/DL (8.5-10.4); CHLORIDE, SERUM 90 MMOL/L (96-112); CREATININE 1.58 MG/DL (0.55-1.02); GFR AFRICAN AMERICAN 35 ML/MIN (>=60); GFR NON AFRICAN AMERICAN 31 ML/MIN (>=60); GLUCOSE, SERUM 68 MG/DL (60-99); PHOSPHORUS, SERUM 2.9 MG/DL (2.5-4.5); POTASSIUM, SERUM 3.2 MMOL/L (3.5-5.3); SODIUM, SERUM 136 MMOL/L (135-148)
[2016-09-17 07:00] LABS: BUN (BLOOD UREA NITROGEN) 48 MG/DL (6-23); CO2 (CARBON DIOXIDE) 35 MMOL/L (24-34)
[2016-09-18 04:29] LABS: ALBUMIN 2.3 G/DL (3.5-5.0); BUN (BLOOD UREA NITROGEN) 45 MG/DL (6-23); CALCIUM, SERUM 8.8 MG/DL (8.5-10.4); CHLORIDE, SERUM 89 MMOL/L (96-112); CO2 (CARBON DIOXIDE) 35 MMOL/L (24-34); CREATININE 1.47 MG/DL (0.55-1.02); GFR AFRICAN AMERICAN 39 ML/MIN (>=60); GFR NON AFRICAN AMERICAN 33 ML/MIN (>=60); PHOSPHORUS, SERUM 2.2 MG/DL (2.5-4.5); SODIUM, SERUM 138 MMOL/L (135-148)
[2016-09-18 04:42] LABS: INTERNATIONAL NORMAL RATI 1.3 UNITS (-); PROTIME (NOT ORD) 16.4 SEC (12.0-14.5)
[2016-09-18 04:43] LABS: GLUCOSE, SERUM 99 MG/DL (60-99); POTASSIUM, SERUM 3.2 MMOL/L (3.5-5.3)
[2017-02-15] MEDS ORDERED: FLAG500TAB PO (20:22)
[2017-02-15] MEDS ORDERED: ULTRAM50 PO (20:23)
[2017-02-15] MEDS ORDERED: CIP5 PO (20:24)
[2017-02-15] MEDS ORDERED: MACROBID PO (20:24)
[2017-02-15] MEDS ORDERED: CIP2 PO (20:26)
[2017-02-15] MEDS ORDERED: BACDS PO (20:26)
[2017-02-15] MEDS ORDERED: BUSPAR5 PO (20:27)
[2017-02-15] MEDS ORDERED: BUSPAR10 PO (20:28)
[2017-02-15] MEDS ORDERED: KLOR-CON M2020 MEQ PO (20:28)
[2017-02-15] MEDS ORDERED: PRILO PO (20:29)
[2017-02-15] MEDS ORDERED: PRAVACHOL40 MG PO (20:29)
[2017-02-15] MEDS ORDERED: DEMA20 PO (20:30)
[2017-02-15] MEDS ORDERED: COREG6 PO (20:30)
[2017-02-15] MEDS ORDERED: C25 PO (20:32)
[2017-02-15] MEDS ORDERED: REFRESH OPH (20:32)
[2017-02-15] MEDS ORDERED: OS500+D PO (20:32)
[2017-02-15] MEDS ORDERED: CLARIT10 PO (20:33)
[2017-02-19] MEDS ORDERED: C2 PO (11:13)
[2017-02-19] MEDS ORDERED: PRIN2.5 PO (11:15)
[2017-02-19] MEDS ORDERED: LOM PO (11:16)
== END 2016-09-18 16:39 | DRG 226 ==
LOC: ER → 2SO 02:55 → MIC 09-09 14:17 → IMCU 09-10 16:36 → SSU1 09-15 14:02 → IMCU 09-15 14:21 → 5NO 09-16 21:11
PROVIDERS: Hospitalist; Internal Medicine; Internal Medicine Cardiovascular Disease; Internal Medicine Nephrology; Internal Medicine Pulmonary Disease; Registered Nurse; Specialist
PROC: 4A023FZ Measurement of Cardiac Rhythm, Percutaneous Approach (ICD-10-PCS; principal; 2016-09-07)
PROC: 0JH609Z Insertion of Cardiac Resynchronization Defibrillator Pulse Generator into Chest Subcutaneous Tissue and Fascia, Open Approach (ICD-10-PCS; 2016-09-07)
PROC: 02HK3KZ Insertion of Defibrillator Lead into Right Ventricle, Percutaneous Approach (ICD-10-PCS; 2016-09-07)
PROC: 02H43KZ Insertion of Defibrillator Lead into Coronary Vein, Percutaneous Approach (ICD-10-PCS; 2016-09-07)
PROC: 02583ZZ Destruction of Conduction Mechanism, Percutaneous Approach (ICD-10-PCS; 2016-09-07)
PROC: 4A0234Z Measurement of Cardiac Electrical Activity, Percutaneous Approach (ICD-10-PCS; 2016-09-07)
PROC: 02HV33Z Insertion of Infusion Device into Superior Vena Cava, Percutaneous Approach (ICD-10-PCS; 2016-09-09)
DX: I13.0 Hypertensive heart and chronic kidney disease with heart failure and stage 1 through stage 4 chronic kidney disease, or unspecified chronic kidney disease (principal); I50.23 Acute on chronic systolic (congestive) heart failure; R57.0 Cardiogenic shock; N17.9 Acute kidney failure, unspecified; N18.4 Chronic kidney disease, stage 4 (severe); I42.9 Cardiomyopathy, unspecified; E87.1 Hypo-osmolality and hyponatremia; I48.91 Unspecified atrial fibrillation; I34.0 Nonrheumatic mitral (valve) insufficiency; Z85.3 Personal history of malignant neoplasm of breast; Z92.3 Personal history of irradiation; Z88.0 Allergy status to penicillin; E87.6 Hypokalemia; E66.9 Obesity, unspecified; Z68.31 Body mass index [BMI] 31.0-31.9, adult; I44.7 Left bundle-branch block, unspecified; R53.81 Other malaise
CPT/HCPCS: 33225; 33249; 36569; 36600; 71010; 80048; 80053; 80069; 80076; 82550; 82570; 82805; 83735; 83880; 84100; 84132; 84156; 84443; 84484; 85025; 85610; 85730; 87641; 93005; 93650; 96374; 96375; 96376; 97162-GP; 99291; A9270-GY; C1730; C1732; C1751; C1769; C1781; C1882; C1887; C1892; C1894; C1895; C1900; G8978-CL-GP; G8979-CK-GP; J0282; J1160; J2260; J2405; J3010; J3370; P9047; Q9967

== ENCOUNTER 2017-03-24 21:24 | Emergency (ER) | payer MEDICARE ==
[~2017-03-24 21:24] MED LIST changes: +BACDS PO; +CIP2 PO; +CIP5 PO; +COREG6 PO; +DEMA20 PO; +FLAG500TAB PO; +LOM PO; +LOVENOX80 SC; +MACROBID PO; +OYST-CAL500 MG PO; +PRIN2.5 PO; +PROAMAT5 PO; +SPIRO25 PO
[2017-03-24 22:48] LABS: BASOPHILS 0.1 %; BASOPHILS ABSOLUTE 0.01 10/3/uL (0.0-0.16); EOSINOPHILS 0 %; HEMOGLOBIN 11.1 g/dL (12.0-16.0); IMMATURE GRANULOCYTES 0.5 %; IMMATURE GRANULOCYTES ABSOLUTE 0.08 10/3/uL (0.0-0.11); LYMPHOCYTES 3.1 %; LYMPHOCYTES ABSOLUTE 0.53 10/3/uL (0.67-4.30); MEAN CORPUS HGB CONC 32.7 g/dL (32.0-36.0); MEAN CORPUSCULAR HEMOGLOB 27.3 pg (26.0-34.0); MEAN CORPUSCULAR VOLUME 83.5 fL (80-100); MEAN PLATELET VOLUME 10.3 fL (9.2-13.0); MONOCYTES 5.9 %; MONOCYTES ABSOLUTE 1.01 10/3/uL (0.21-1.20); NEUTROPHILS 90.4 %; NEUTROPHILS ABSOLUTE 15.36 10/3/uL (2.02-8.40); PLATELET COUNT 312 10/3/uL (150-400); RBC DISTRIBUTION WIDTH 16.6 % (12.0-16.0); RED CELL COUNT 4.06 10/6/uL (4.0-5.6)
[2017-03-24 22:49] LABS: HEMATOCRIT 33.9 % (36.0-48.0); MANUAL DIFF NO %
[2017-03-24 23:04] LABS: A/G RATIO 0.3 (0.7-1.9); ALBUMIN 1.5 G/DL (3.5-5.0); ALKALINE PHOSPHATASE 97 U/L (45-117); CALCIUM, SERUM 8.4 MG/DL (8.5-10.4); CHLORIDE, SERUM 96 MMOL/L (96-112); CO2 (CARBON DIOXIDE) 29 MMOL/L (24-34); CREATININE 1.02 MG/DL (0.55-1.02); GFR AFRICAN AMERICAN 60 ML/MIN (>=60); GFR NON AFRICAN AMERICAN 52 ML/MIN (>=60); GLOBULIN 4.5 G/DL (2.5-4.1); GLUCOSE, SERUM 86 MG/DL (60-99); INDIRECT BILIRUBIN(NOT ORDER) 0.3 MG/DL (0.1-0.9); POTASSIUM, SERUM 4.1 MMOL/L (3.5-5.3); SGOT(AST) 8 U/L (5-40); SGPT(ALT) 7 U/L (5-65); SODIUM, SERUM 132 MMOL/L (135-148); TOTAL BILIRUBIN 0.5 MG/DL (0-1.2)
[2017-03-24 23:05] LABS: BUN (BLOOD UREA NITROGEN) 21 MG/DL (6-23); DIRECT BILIRUBIN 0.2 MG/DL (0.0-0.4)
[2017-03-24 23:21] LABS: INTERNATIONAL NORMAL RATI 6.1 UNITS (-); PROTIME (NOT ORD) 53.8 SEC (12.0-14.5)
[2017-03-24 23:23] LABS: PARTIAL THROMBO TIME 122.4 SEC (22.5-37.2)
[2017-03-25 00:19] LABS: ASCORBIC ACID (UR NOT ORDER) NEG (NEG); BILIRUBIN, URINE NEGATIVE (NEG); ER URINALYSIS TAT 0 Hrs 00 Mins; KETONE, URINE NEGATIVE (NEG); LEUKOCYTE ESTERASE(NOT OR NEG (NEG); NITRITE (URINE) NEG (NEG); WBC (NOT ORDERED) (RFLEX) < 1 (0-5)
[2017-03-25 00:51] LABS: PROCALCITONIN 0.15 ng/mL (<0.5)
== END 2017-03-25 02:10 | disposition home or self-care (01) ==
LOC: ER 21:24
PROVIDERS: Nurse Practitioner
DX: R10.9 Unspecified abdominal pain (principal); G89.29 Other chronic pain; D68.9 Coagulation defect, unspecified; D72.829 Elevated white blood cell count, unspecified; E87.1 Hypo-osmolality and hyponatremia; D64.9 Anemia, unspecified; K44.9 Diaphragmatic hernia without obstruction or gangrene; I12.9 Hypertensive chronic kidney disease with stage 1 through stage 4 chronic kidney disease, or unspecified chronic kidney disease; N18.9 Chronic kidney disease, unspecified; I48.91 Unspecified atrial fibrillation; K21.9 Gastro-esophageal reflux disease without esophagitis; Z85.3 Personal history of malignant neoplasm of breast; Z88.0 Allergy status to penicillin; Z88.2 Allergy status to sulfonamides; Z88.8 Allergy status to other drugs, medicaments and biological substances; Z79.01 Long term (current) use of anticoagulants; Z79.899 Other long term (current) drug therapy
CPT/HCPCS: 74176; 80053; 81001; 82140; 82248; 83605; 83690; 84145; 85025; 85610; 85730; 96374; 99284; J2405